=== PATIENT | female | born 2000 | race Caucasian/White ===

== ENCOUNTER 2024-07-23 01:34 | Emergency (ER) | payer OTHER, SELFPAY ==
[2024-07-23 01:37] VITALS: BP 114/66
[2024-07-23 01:57] LABS: % Basophils 0.4 % (0-2); % Eosinophils 0.3 % (0-6); % Immature Granulocytes 0.6 % (0-0.5); % Lymphocytes 11.5 % (20.5-51.1); % Monocytes 5.1 % (1.7-9.3); % Neutrophils 82.1 % (42.2-75.2); Absolute Immature Granulocytes 0.1 10^3/uL (0-0.05); Absolute Lymphocytes 1.3 10^3/uL (1.2-3.4); Absolute Monocytes 0.6 10^3/uL (0.1-0.6); Absolute Neutrophils 8.9 10^3/uL (1.4-6.5); Hematocrit 35.5 % (37.0-47.0); Hemoglobin 12.2 g/dL (12.0-16.0); Mean Corp Hgb Conc. 34.4 g/dL (33.0-37.0); Mean Corpuscular Volume 87.2 fL (81.0-99.0); Mean Platelet Volume 8.9 fL (7.4-10.4); Nucleated Red Blood Cells % 0 %; Platelet Count 219 10^3/uL (130-400); Red Blood Cell Count 4.07 10^6/uL (4.20-5.40); Red Cell Dist. Width 13.7 % (11.5-14.5); White Blood Cell Count 10.9 10^3/uL (4.8-10.8)
[2024-07-23 02:10] LABS: ALT (SGPT) 40 U/L (0-35); AST (SGOT) 27 U/L (14-36); Albumin 3.7 g/dl (3.5-5.0); Alkaline Phosphatase 71 U/L (38-126); Blood Urea Nitrogen 12 mg/dl (7-17); Calcium 8.8 mg/dl (8.4-10.2); Carbon Dioxide 21 mmol/L (22-30); Chloride 106 mmol/L (98-107); Glucose 124 mg/dl (70-99); Potassium 4.2 mmol/L (3.5-5.1); Sodium 136 mmol/L (135-145); Total Bilirubin 0.4 mg/dl (0.2-1.3); Total Protein 6.7 g/dl (6.3-8.2); eGFR > 60.00
[2024-07-23 04:01] VITALS: BP 123/73
--- NOTE | 2024-07-23 04:23 | ED.GENMED ---
History of Present Illness
General
Chief Complaint: Abdominal Symptoms
Source: patient
Exam Limitations: none
Time Seen by Provider: 07/23/24 04:14
Nursing documentation reviewed up to this point in time: agreed with
History of Present Illness
History of Present Illness:
This is a 24-year-old woman 1 para 0 currently 18 weeks with EDC December 19. She presents with nausea, vomiting, diarrhea that began around 8 PM tonight accompanied with generalized lower abdominal crampy pain. She denies hematemesis
nor hematochezia, denies fever nor chills. No known close contacts with similar symptoms.
Currently symptoms have improved, abdominal pain has resolved. She continues with some nausea but has been able to take small sips of clear liquids.
She denies vaginal discharge nor bleeding.
She resides in [place], currently visiting locally and plans to return home tomorrow.
She takes no medicines on a daily basis other than vitamins. No recent antibiotic use nor recent foreign travel.
Past History
Past History
ED Past Medical History: None
ED Past Surgical History: None
Social History
Tobacco: Non-smoker
Alcohol: None
Drug: None
Personal:
Living: with family
Employment: Not employed
Family History
Family History: Other (Noncontributory)
Phy Exam
Physical Exam
Physical Exam:
GENERAL: 24-year-old female appears her stated age, bright and alert, pleasant, appears in no acute distress. Mother is accompanying.
EYE: anicteric
NECK: Supple, nontender, no meningismus, no significant adenopathy.
ENT: oral mucosa is moist. No rhinorrhea.
CARDIAC: Regular rate and rhythm. no murmur.
LUNGS: Clear breath sounds bilaterally, no acute respiratory distress, no wheezes/rales/rhonchi
ABDOMEN: Soft, nondistended, without focal tenderness, no r/g, gravid uterus palpable to 2 cm below the umbilicus, no cvat. normoactive BS.
NEUROLOGICAL: Alert and oriented x3, no focal neuro deficits. Gait is carter and steady.
SKIN: Warm and dry, normal color, skin intact. No rash.
MUSCULOSKELETAL: No C/C/E. peripheral pulses are full and equal b/l. No palpable tenderness.
PSYCH: Normal and appropriate interaction.
Course
Orders/Labs/Results
Orders:
Orders
07/23/24 01:46
Complete Blood Count/With Diff Urgent
Comprehensive Metabolic Panel Urgent
HCG,SERUM [Beta HCG Quantitative] Urgent
Is this a screen?: No
07/23/24 04:22
Ondansetron Orally Disint [Zofran Odt (Orally Disintegrating)] 4 mg PO NOW STA
07/23/24 04:30
Heart Tones ONCE
07/23/24 05:25
Encourage PO Hydration-Treatme ONCE
Abnormal Lab Results
07/23/24
01:46
WBC 10.9 H 10^3/uL
(4.8-10.8)
RBC 4.07 L 10^6/uL
(4.20-5.40)
Hct 35.5 L %
(37.0-47.0)
Abs Immat Gran (auto) 0.1 H 10^3/uL
(0-0.05)
Absolute Neuts (auto) 8.9 H 10^3/uL
(1.4-6.5)
Immature Gran % 0.6 H %
(0-0.5)
Neutrophils % 82.1 H %
(42.2-75.2)
Lymphocytes % 11.5 L %
(20.5-51.1)
Carbon Dioxide 21 L mmol/L
(22-30)
Glucose 124 H mg/dl
(70-99)
ALT 40 H U/L
(0-35)
07/23/24 01:46
07/23/24 01:46
Vital Signs
Initial and Last Documented VS:
Initial Vital Signs
Temp Pulse Resp BP Pulse Ox
98.2 F 100 20 114/66 100
07/23/24 01:37 07/23/24 01:37 07/23/24 01:37 07/23/24 01:37 07/23/24 01:37
Last Documented Vital Signs
Temp Pulse Resp BP Pulse Ox
99.3 F 96 16 123/73 99
07/23/24 04:01 07/23/24 04:01 07/23/24 04:01 07/23/24 04:01 07/23/24 04:01
MDM/Problems Addressed
Differential Diagnosis Includes:
Concern for acute gastroenteritis. Bowel obstruction is much less likely.
Overall well in appearance. Symptoms have been improving.
Hemodynamically stable. Overall appears euvolemic.
Abdomen is soft without appreciable tenderness.
Will trial Zofran ODT and oral fluid rehydration.
Labs are reassuring.
Will check heart tones.
At this point no indication for imaging.
Chronic conditions affecting care: Other (Currently )
*Pulse Oximetry
Patient hypoxic: no
*Critical Care Note
Total Time (30-74mins, 75-104mins- exclusive of procedures): Not Applicable
Update Note
Update Note:
06:15
Entered room to recheck patient see how she is tolerating oral fluids.
Patient not in room, hospital gown on bed. Appears to have left the ED.
ED Attending Note
-
Portions of this chart may have been created with voice recognition software.� Occasional wrong word or��sound alike� substitutions may have occurred due to the inherent limitations of voice recognition software.
Discharge Plan
Departure
Patient Disposition: Elopement
Date of Disposition: 07/23/24
Time of Disposition: 06:15
Discharge Problem:
Acute gastroenteritis
Prescriptions:
No Action
1 tab PO DAILY
Referrals:
UNKNOWN - PT DOES,NOT KNOW [Family Provider] -
Interventions
Interventions:
*Risk Screen - Suicide Last Done: 07/23/24 01:37
*General Assessment Last Done: 07/23/24 04:44
*Neglect/Abuse Screening Last Done: 07/23/24 01:37
*ED COVID-19 Vaccine History Last Done: 07/23/24 04:44
*Nursing Disposition Last Done: 07/23/24 06:15
PR-Hpuggc-Ucncrtglzn Assessment Last Done: 07/23/24 04:55
Discharge Date and Time
Discharge Date/Time: 07/23/24 06:15
Print Language: MALAWIAN
[2024-07-23] MEDS: ZOFRAN ODT (ORALLY DISINTEGRATING) 4 MG PO (04:45)
== END 2024-07-23 06:15 | disposition left against medical advice (07) ==
LOC: EMR 01:34
PROVIDERS: EMERGENCY PHYSICIAN Emergency Medicine
DX: O99.612 Diseases of the digestive system complicating pregnancy, second trimester (principal); K52.9 Noninfective gastroenteritis and colitis, unspecified; Z53.29 Procedure and treatment not carried out because of patient's decision for other reasons; Z3A.18 18 weeks gestation of pregnancy
CPT/HCPCS: 99283; 80053; 84702; 85025